=== PATIENT | female | born 1975 | race Caucasian/White ===

== ENCOUNTER 2020-02-14 06:16 | Outpatient (CLI) | payer BC, OTHER ==
[2020-02-14 11:25] LABS: BHCG - Serum Negative (NEGATIVE); Pregs Control Background? CLEAR/WHITE (CLR/WHITE); Pregs Control Bar Appear? YES (CONTROL BAR)
[2020-02-14 11:32] LABS: Hemoglobin 13.5 g/dL (12.0-16.0); Mean Corpuscular HGB CONC 32.3 g/dL (32.0-36.0); Mean Corpuscular Hemoglobin 32.3 pg (27.0-31.0); Mean Platelet Volume 9.6 fL (7.4-10.4); Platelet Count 243 thou/uL (130-400); RBC Distribution Width 12.9 % (11.5-14.5); Red Blood Cell (RBC) Count 4.18 mill/uL (4.20-5.40); White Blood Cell (WBC) Count 4.8 thou/uL (4.8-10.8)
[2020-02-14 11:39] LABS: PTT 32.5 sec (22.9-36.1)
[2020-02-14 11:40] LABS: INR-International Normal Ratio 1.1; Prothrombin Time 14.3 sec (12.0-14.7)
[2020-02-14 12:14] LABS: Anion Gap 13 mmol/L (10-20); BUN (Urea Nitrogen) 14 mg/dL (7.0-18.7); Calc. Creatinine Clearance 0 mL/min (70-130); Calcium 9.8 mg/dL (7.8-10.44); Carbon Dioxide 25 mmol/L (22-29); Chloride 105 mmol/L (98-107); Estimated GFR-MDRD 76; Glucose 84 mg/dL (70-105); Potassium 4.5 mmol/L (3.5-5.1); Sodium 138 mmol/L (136-145)
[2020-02-14 17:44] LABS: SARS-CoV-2 MS2 Positive; SARS-CoV-2 N Gene Negative; SARS-CoV-2 S Gene Negative; SARS-CoV-2 by NAA Not Detected (NotDetected); SARS-CoV-2 orf1ab Negative
== END 2020-02-14 06:17 | disposition home or self-care (01) ==
LOC: LABBT 06:16
PROVIDERS: ATTEND Internal Medicine Cardiovascular Disease
DX: Z01.818 Encounter for other preprocedural examination (principal); Z11.59 Encounter for screening for other viral diseases; I48.91 Unspecified atrial fibrillation
CPT/HCPCS: 80048; 84703; 85027; 85610; 85730; 87635; 93005; 93010; U0003

== ENCOUNTER 2020-02-18 06:09 | Observation (INO) | payer BC ==
[2020-02-18] MEDS ORDERED: Heparin 10,000 UNITS/1 ML VIAL ONE ×3 (06:58→08:46)
[2020-02-18] MEDS ORDERED: Phenylephrine 10 MG/ML VIAL ONE (07:05)
[2020-02-18] MEDS ORDERED: Fentanyl 100 MCG/2 ML VIAL ONE ×2 (07:09→11:47)
[2020-02-18] MEDS ORDERED: Lidocaine 2% Jelly 5 ML TUBE ONE (07:13)
[2020-02-18] MEDS ORDERED: Isoproterenol 0.2 MG/1 ML AMP ONE (09:28)
[2020-02-18] MEDS ORDERED: Heparin 25,000 units/D5W 500 ML ONE (09:28)
[2020-02-18] MEDS ORDERED: Lidocaine 1% PF 5 ML VIAL ONE (09:46)
[2020-02-18] MEDS ORDERED: Glycopyrrolate 0.2 MG/ML 5 ML SYRINGE ONE (09:46)
[2020-02-18] MEDS ORDERED: Ondansetron PF 4 MG/2 ML Vial ONE (09:46)
[2020-02-18] MEDS ORDERED: Dexamethasone 20 MG/5 ML VIAL ONE (09:46)
[2020-02-18] MEDS ORDERED: PHENYLEPHRINE-NS 100 MCG/ML 10 ML SYRINGE ONE (09:46)
[2020-02-18] MEDS ORDERED: PROPOFOL 200 MG/20 ML VIAL ONE (09:46)
[2020-02-18] MEDS ORDERED: Rocuronium Bromide 10 MG/ML (10ML VIAL) ONE (09:46)
[2020-02-18] MEDS ORDERED: Protamine Sulfate 50 MG/5 ML VIAL ONE (11:10)
[2020-02-18] MEDS ORDERED: Ketorolac Tromethamine 30 MG/ML VIAL ONE (12:26)
[2020-02-18] MEDS ORDERED: Acetaminophen/Codeine 30-300mg Tablet ONE (12:34)
[2020-02-18 13:58] VITALS: BMI 21.1
[2020-02-18] MEDS ORDERED: Cepastat Lozenges 1 LOZ PO PRN (14:15)
[2020-02-18] MEDS ORDERED: Ketorolac Tromethamine 30 MG/ML VIAL IVP PRN (14:16)
[2020-02-18] MEDS ORDERED: Calcium Carbonate 500 MG ChewTAB PO PRN (14:16)
[2020-02-18] MEDS ORDERED: Furosemide 40 MG TAB PO PRN (14:24)
[2020-02-18] MEDS: Sucralfate 1 GM TAB PO SCH ×2 (15:24→19:39)
[2020-02-18] MEDS: SUMAtriptan Succinate 50 MG TAB PO PRN ×3 (15:24→23:27)
--- NOTE | 2020-02-18 16:11 | EKG ---
Test Reason : POST ABLATION Blood Pressure : / mmHG Vent. Rate : 071 BPM Atrial Rate : 071 BPM P-R Int : 116 ms QRS Dur : 090 ms QT Int : 448 ms P-R-T Axes : 076 080 067 degrees QTc Int : 486 ms Normal sinus rhythm RSR' or QR pattern in V1 suggests right ventricular conduction delay Prolonged QT Abnormal ECG Confirmed by JORGE CROOK ([id number]) on 02/18/2020 4:10:45 PM Referred By: POLLO Confirmed By:JORGE CROOK
--- NOTE | 2020-02-18 18:23 | OP ---
DATE OF PROCEDURE: 02/18/2020 REASON FOR PROCEDURE: Ms. Traore is a 44-year-old woman with history of recurrent atrial arrhythmias, recurrent PAT runs, and subsequent atrial fibrillation. After 2 hours, she had used flecainide but would like to avoid chronic use before proceeding with ablation and significant symptoms of palpitation. She had structural normal heart, otherwise, here for pulmonary venous isolation procedure. DESCRIPTION OF PROCEDURE: The patient received general anesthesia. The left and right femoral vein was accessed using multipurpose needle under ultrasound guidance. On the left side, an 11-Lebanese sheath was used to advance the intracardiac echocardiogram probe to the right atrium and was used to monitor the pericardial space, the transseptal puncture, and catheter manipulation throughout the procedure. Also from the left femoral vein, a Preface sheath was used to advance a Duodeca catheter to the CS in the right atrial position. From the right femoral venous access, two 8-Lebanese short sheaths were introduced through which a ThermoCool SFST catheter was advanced to the right atrium, where 3D map of the right atrium, His bundle, CS, SVC, and IVC positions were marked. IV heparin was administered at this point in a bolus and drip fashion, which was adjusted periodically to keep ACT over 350 throughout the procedure. The 8-Lebanese sheaths were exchanged two SL1 transseptal sheaths, which was used to perform a transseptal puncture with the help of a [employer] powered needle. Through the SL1 sheaths, a ThermoCool SFST ablation catheter and a 20-pole Lasso catheter were advanced to the left atrium. 3D map of left atrium was obtained with findings of a low scar burden and 4 pulmonary veins. Following that we proceeded with a pulmonary venous isolation. All 4 pulmonary veins were isolated. Posterior wall was also isolated using a roof and the inferior line. There was a posterior wall cautery, careful attention was paid to the esophageal temperature and extra irrigation was performed on any heating observed. Following that, pacing was performed ruling out accessory pathway and IV Isuprel was started also and all 4 pulmonary veins were checked for reconnection, and any reconnection was re-ablated. Following findings were noted. Baseline rhythm was sinus rhythm, RR interval 1000 msec, NE 125 msec, QRS 86 msec, QT 480 msec, AH 100 msec, HV 231 msec. The AV Wenckebach cycle length was 390 msec . Retrograde Wenckebach cycle length was 310 millisecond. Atrial extrastimuli testing was performed. Then the AV evie ERP measured at 600/330 msec. No dual AV evie physiology was seen and concentric retrograde VA conduction was noted. Burst atrial pacing induced a short apical atrial flutter, which self-terminated. The cycle length was 240 msec. Following the ablation on Isuprel, repeated burst atrial pacing did not reinduce any atrial arrhythmias. At the end of the case, the catheter was withdrawn from left atrium. IV heparin was stopped and then the aortic root with protamine. The cardiac silhouette did not change with the procedure and the intracardiac echocardiogram revealed no evidence of pericardial effusion pre and post ablation. The long sheaths were exchanged to short sheaths and basket closure of all 4 femoral venous access sites was performed. The patient tolerated the procedure well. No complications noted. CONCLUSION: 1. Successful 4-vein pulmonary venous isolation. 2. Posterior wall ablated using roof and inferoposterior line. 3. Normal AV evie, sinus evie, and His-Purkinje function seen. 4. No evidence of accessory pathway or dual AV evie physiology present. 5. No atrial arrhythmias inducible in the end of the case with burst atrial pacing. PLAN: 1. Continue oral anticoagulation and consider discontinuing after 3 months if no recurrent atrial arrhythmias are seen. 2. Also stop flecainide. Job ID: [id number]
[2020-02-18] MEDS: Magnesium Oxide 250 MG TAB PO SCH (19:39)
[2020-02-18] MEDS: Apixaban 5 MG TAB PO SCH (19:39)
[2020-02-19] MEDS ORDERED: Levothyroxine Sodium 75 MCG TAB PO SCH (06:00)
[2020-02-19 08:03] VITALS: BP 99/64; TEMP 97.8
[2020-02-19] MEDS: Sucralfate 1 GM TAB PO SCH (08:04)
[2020-02-19] MEDS: Apixaban 5 MG TAB PO SCH (08:05)
[2020-02-19] MEDS: Magnesium Oxide 250 MG TAB PO SCH (08:06)
[2020-02-19] MEDS: SUMAtriptan Succinate 50 MG TAB PO PRN (08:24)
[2020-02-19] MEDS ORDERED: Cholecalciferol 1,000 UNITS (25 MCG) TAB PO SCH (09:00)
[2020-02-19] MEDS ORDERED: Furosemide 40 MG TAB PO SCH (09:00)
[2020-02-19] MEDS ORDERED: BRINTELLIX 20 MG PO SCH (09:00)
[2020-02-19] MEDS ORDERED: VYVANSE 70 MG PO SCH (09:00)
[2020-02-19] MEDS ORDERED: ZOVIA PO SCH (09:00)
--- NOTE | 2020-02-19 15:53 | EKG ---
Test Reason : Blood Pressure : / mmHG Vent. Rate : 083 BPM Atrial Rate : 083 BPM P-R Int : 118 ms QRS Dur : 080 ms QT Int : 382 ms P-R-T Axes : 078 069 057 degrees QTc Int : 448 ms Normal sinus rhythm Confirmed by JORGE CROOK ([id number]) on 02/19/2020 3:53:26 PM Referred By: POLLO Confirmed By:JORGE CROOK
--- NOTE | 2020-02-21 06:28 | DIS ---
DATE OF ADMISSION: 02/18/2020 DATE OF DISCHARGE: 02/19/2020 Dictated by Zenia Santo, nurse practitioner, as a scribe for Dr. Nicholas Kaur DIAGNOSES: Atrial fibrillation, palpitations. PROCEDURE PERFORMED: Include electrophysiology study with 3-dimensional mapping, pulmonary venous isolation for atrial fibrillation. COMPLICATIONS: None. CONDITION AT DISCHARGE: Stable. HISTORY OF PRESENT ILLNESS: Ms. Traore is a 44-year-old woman with history of recurrent atrial arrhythmias with PAT runs and subsequent atrial fibrillation, of which she was highly symptomatic. She was initially medicated with flecainide, but felt significantly run down on this medication. She would like to avoid chronic use of medications and opted for ablation for her atrial arrhythmias. This was performed on 02/18/2020. All 4 pulmonary veins were isolated including the posterior wall using roof and inferior posterior line. Recommendation was to continue oral anticoagulation for 3 months. If no recurrent atrial arrhythmias are seen, could consider discontinuing anticoagulation in favor of aspirin alone and also to remain off flecainide postablation. SUBJECTIVE: Ms. Traore is experiencing a headache the morning after her procedure. Otherwise, has not experienced any postablation concerns or complaints. She has maintained sinus rhythm. She is eager to discharge home. OBJECTIVE: VITAL SIGNS: Temperature 97.8, pulse 74, blood pressure 103/71, respirations 16, and oxygen 97% on room air. GENERAL: The patient is alert and oriented. Speech is clear. Affect is appropriate. NEUROLOGIC: Grossly intact. Bilateral groin sites are stable without hematoma or bleeding evidence. LUNGS: Clear to auscultation bilaterally. CARDIAC: Heart rate is irregularly irregular with crisp S1 and S2. GASTROINTESTINAL: Hepatojugular reflux is negative. EXTREMITIES: Warm and dry to touch. Well perfused without clubbing, cyanosis, or edema. Gait is stable. Telemetry and EKG shows sinus rhythm. DISCHARGE INSTRUCTIONS: Continue Eliquis. Stop flecainide. Continue all other home medications. Follow up with [facility] in 6 weeks. No heavy lifting or strenuous activity for 1 week, but may resume gradually and as tolerated. Refer to [facility] postablation discharge packet. Contact [facility] with any question. DISCHARGE MEDICATIONS: Resume; 1. Trintellix. 2. Metoprolol succinate 50 mg daily. 3. Magnesium. 4. Vyvanse. 5. Synthroid. 6. Zovia. 7. Vitamin D3. 8. Eliquis. New prescription for Carafate 1 g q.i.d. for 2 weeks, K-Dur 20 mEq p.o. p.r.n. to be taken with Lasix, Protonix 40 mg daily for 30 days, Lasix 40 mg p.o. p.r.n. daily for shortness of breath, fluid retention, weight gain. Refill of a home prescription for eletriptan p.r.n. for migraine was submitted as well. Follow up in 6 weeks is requested. Job ID: [id number]
== END 2020-02-19 10:32 | disposition home or self-care (01) ==
LOC: CCL 06:09 → 2NO 06:55 → EEVIPCON 09:00
PROVIDERS: ADMIT Internal Medicine Cardiovascular Disease; ATTEND Internal Medicine Cardiovascular Disease
PROC: 02583ZZ Destruction of Conduction Mechanism, Percutaneous Approach (ICD-10-PCS; principal; 2020-02-18)
PROC: 02K83ZZ Map Conduction Mechanism, Percutaneous Approach (ICD-10-PCS; 2020-02-18)
PROC: 4A023FZ Measurement of Cardiac Rhythm, Percutaneous Approach (ICD-10-PCS; 2020-02-18)
PROC: 4A0234Z Measurement of Cardiac Electrical Activity, Percutaneous Approach (ICD-10-PCS; 2020-02-18)
DX: I48.0 Paroxysmal atrial fibrillation (principal); E06.3 Autoimmune thyroiditis; E03.8 Other specified hypothyroidism; F90.9 Attention-deficit hyperactivity disorder, unspecified type; F32.9 Major depressive disorder, single episode, unspecified; F41.9 Anxiety disorder, unspecified; F42.9 Obsessive-compulsive disorder, unspecified; G43.909 Migraine, unspecified, not intractable, without status migrainosus; Z79.01 Long term (current) use of anticoagulants; Z79.899 Other long term (current) drug therapy
CPT/HCPCS: 76942; 85347; 93005; 93010; 93613; 93623; 93655; 93656; 93657; 93662; 96374; C1732; C1759; C1884; G0378; J1100; J1644; J1885; J2370; J2405; J2704; J2720; J3010